=== PATIENT | male | born 1985 | race Caucasian/White ===

== ENCOUNTER 2021-10-19 14:48 | Emergency (ER) | payer OTHER ==
[2021-10-19] MEDS ORDERED: MEDROL DOSEPAK 24 MG PO (16:04)
[2021-10-19] MEDS ORDERED: CYCLOBENZAPRINE10 MG PO (16:04)
== END 2021-10-19 16:15 | disposition home or self-care (01) ==
LOC: ER1 14:48
DX: M54.41 Lumbago with sciatica, right side (principal); I10 Essential (primary) hypertension
CPT/HCPCS: 96372; 99283; J1100; J1885